=== PATIENT | female | born 2000 | race Hispanic/Latino ===

== ENCOUNTER 2022-01-06 14:05 | Emergency (ER) | payer BC ==
--- NOTE | 2022-01-06 15:01 | Consultation ---
History of Present Illness - Reason for Consult Consult date: 01/06/22 - History of Present Illness [facility] Consult Note # Demographics Consult Type: Acute Stroke Level 1 (0-4.5 hrs) Patient Location: Emergency Room First Name: susannah Last Name: Hua Date of : 2000 Age: 21 Gender: Female Facility: [facility] Time of Initial Page ( Time): 01/06/2022, 14:50 Time of Return Call ( Time): 01/06/2022, 14:50 # HPI History: 21yo woman who presented with headache and chest pain. She then started having left sided weakness as well as stuttering. Onset was at 230OM or so. Associated Symptoms: headache light sensitivity nausea sound sensitivity vision changes vomiting # Scores Time of exam and NIHSS ( Time): 01/06/2022, 14:55 Level of Consciousness 1a: [0] = Alert; keenly responsive LOC Questions 1b: [0] = Answers both questions correctly LOC Commands 1c: [0] = Performs both tasks correctly Best Gaze 2: [0] = Normal Visual 3: [0] = No visual loss Facial Palsy 4: [0] = Normal symmetrical movements Motor Arm Left 5a: [1] = Drift Motor Arm Right 5b: [0] = No drift Motor Leg Left 6a: [1] = Drift Motor Leg Right 6b: [0] = No drift Limb Ataxia 7: [0] = Absent Sensory 8: [0] = Normal Best Language 9: [0] = No aphasia Dysarthria 10: [0] = Normal Extinction and Inattention 11: [0] = No abnormality NIHSS Total: 2 # Exam Vitals: vital signs reviewed Cranial Nerves: no facial droop Motor: variable left arm and leg weakness # PMH-FH-SH Social History: smoker non-drinker # Data Head CT: no bleed # Assessment Impression: Migraine (Complex) less likely stroke. she has variable left arm and leg weakness, and has no facial droop; this would make stroke much less likely # Plan Thrombolytic/Intervention: NOT IV Thrombolysis or IA Intervention candidate Thrombolytic Exclusion (< 3 hour window): non-disabling deficit Intraarterial Exclusion: clinically not consistent with stroke Imaging: (urgency: STAT): CT Angiogram Head and CT Angiogram Neck Medication: migraine cocktail: Toradol 30 mg IV + Benadryl 25 mg IV + antiemetic IV Other: If CTA negative and symptoms resolved may dispo; otherwise would admit for MRI and symptom control I have discussed my recommendations with the referring provider Medications and Allergies Allergies Allergy/AdvReac Type Severity Reaction Status Date / Time Penicillins AdvReac Unknown Verified 01/06/22 14:46 Exam - Constitutional Vitals: Temp Pulse Resp BP Pulse Ox 98 F 85 20 122/84 99 01/06/22 14:07 01/06/22 14:07 01/06/22 14:07 01/06/22 14:07 01/06/22 14:07
--- NOTE | 2022-01-06 15:02 | Emergency Department Report ---
HPI - General Chief Complaint: Psych Time Seen by Provider: 01/06/22 14:41 - HPI HPI: Room 6 Patient is a 21-year-old female present with a chief complaint of headache and left-sided weakness. Patient states at a detox facility for alcohol and marijuana she developed a headache. EMS was called and the patient states approximately 10 minutes after arriving in the ED body began to feel weird on the left side and she then developed weakness of the left arm and left leg. Patient states she had difficulty speaking. ED Past Medical Hx - Past Medical History Previous Medical History?: No - Surgical History Past Surgical History?: No - Family History Family history: no significant - Social History Smoking Status: Current Every Day Smoker (1/2 pack/day) Substance Use Type: Alcohol (None x6-month), Marijuana (None x6 months) - Medications Home Medications: Home Medications Medication Instructions Recorded Confirmed Last Taken Type Butalb/Acetamin/Caff 50-325-40 2 tab PO Q8HR PRN #20 tablet 01/06/22 Unknown Rx [Fioricet 50-325-40] ED Review of Systems ROS: Stated complaint: CHEST PAIN/HEADACHE Other details as noted in HPI Constitutional: no symptoms reported Eyes: denies: eye pain ENT: denies: throat pain Respiratory: no symptoms reported Cardiovascular: chest pain Endocrine: no symptoms reported Gastrointestinal: denies: abdominal pain Genitourinary: denies: dysuria Musculoskeletal: denies: back pain Neurological: headache, weakness Physical Exam - Physical Exam Vital Signs: Vital Signs 01/06/22 14:07 Temperature 98 F Pulse Rate 85 Respiratory 20 Rate Blood Pressure 122/84 [Left] O2 Sat by Pulse 99 Oximetry Physical Exam: GENERAL: The patient is well-developed well-nourished female lying on stretcher not appearing to be in acute distress. [] HEENT: Normocephalic. Atraumatic. Extraocular motions are intact. Patient has moist mucous membranes. NECK: Supple. Trachea midline CHEST/LUNGS: Clear to auscultation. There is no respiratory distress noted. HEART/CARDIOVASCULAR: Regular. There is no tachycardia. There is no gallop rub or murmur. ABDOMEN: Abdomen is soft, nontender. Patient has normal bowel sounds. There is no abdominal distention. SKIN: There is no rash. There is no edema. There is no diaphoresis. NEURO: The patient is awake, alert, and oriented. The patient is cooperative. Cranial nerves II through XII grossly intact. The patient has normal speech. Patient exhibits difficulty raising left upper extremity off of stretcher. She is not able to bring it to 45 degrees but there is effort against gravity. Patient unable to raise left lower extremity off of stretcher MUSCULOSKELETAL: There is no evidence of acute injury. ED Course Vital Signs 01/06/22 14:07 Temperature 98 F Pulse Rate 85 Respiratory 20 Rate Blood Pressure 122/84 [Left] O2 Sat by Pulse 99 Oximetry - Reevaluation(s) Reevaluation #1: 01/06/22 17:34 Patient now asymptomatic after medication. Patient states she feels good. No focal deficits on exam. Will treat for complex migraines - Consultations Consultation #1: 01/06/22 15:00 Case discussed with telemetry neurologist-states if CT is negative recommends treating as migraine Toradol, Benadryl and Reglan. If no improvement admit the patient for further evaluation ED Medical Decision Making - Lab Data Result diagrams: 01/06/22 15:06 01/06/22 15:06 - Radiology Data Radiology results: report reviewed (CT head, CTA brain, CTA neck), image reviewed (CT head, CTA brain, CTA neck) [facility] [address] [place] [address] Cat Scan Report Signed Patient: ZAFAR KIDD MR#: [id number] [id number] : 2000 Acct:[id number] Age/Sex: 21 / F ADM Date: 01/06/22 Loc: ED Attending Dr: Ordering Physician: MARINA GRAHAM MD Date of Service: 01/06/22 Procedure(s): CT head/brain wo con Accession Number(s): [id number] cc: MARINA GRAHAM MD TEMPORARY INDICATION / CLINICAL INFORMATION: Headache left-sided weakness.; . TECHNIQUE: Routine CT head without contrast. All CT scans at this location are performed using CT dose reduction for ALARA by means of automated exposure control. COMPAR BRADY: None. FINDINGS: BRAIN / INTRACRANIAL CONTENTS: The brain demonstrate appropriate attenuation. The ventricular system is within normal limits in size and configuration. There is no clear CT evidence of acute intracranial hemorrhage or significant mass effect. ORBITS: No significant abnormality of visualized orbits. SINUSES / MASTOIDS: No significant abnormality in the visualized paranasal sinuses or mastoid air cells. CRANIOCERVICAL JUNCTION: No significant abnormality. ADDITIONAL FINDINGS: None. IMPRESSION: 1. There is no CT evidence of acute intracranial process. Signer Name: Dhruv Henley MD Signed: 01/06/2022 3:05 PM Workstation Name: [id number] Transcribed By: MR Dictated By: Dhruv Henley MD Electronically Authenticated By: Dhruv Henley MD Signed Date/Time: 01/06/22 1505 DD/ 1503 TD/TT: [facility] [address] [place] [address] Cat Scan Report Signed Patient: ZAFAR KIDD MR#: [id number] : 2000 Acct:[id number] Age/Sex: 21 / F ADM Date: 01/06/22 Loc: ED Attending Dr: Ordering Physician: MARINA GRAHAM MD Date of Service: 01/06/22 Procedure(s): CT angio head Accession Number(s): [id number] cc: MARINA GRAHAM MD CT angio head INDICATION / CLINICAL INFORMATION: 21 years Female; Left-sided weakness 100 ml omni 300 . TECHNIQUE: Thin cut axial images obtained through the head during IV bolus contrast administration. Sagittal, coronal, and 3 plane MIP reconstructions performed by the technologist. NASCET type criteria used evaluate stenoses. Automated exposure control utilized for radiation reduction purposes. COMPARISON: None available. FINDINGS: INTERNAL CAROTID ARTERIES: There is no significant focal stenosis involving intracranial ICAs by NASCET criteria. VERTEBROBASILAR SYSTEM: There appears be mild relative hypoplasia the vertebrobasilar system though there is again no significant focal stenosis. 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 Otherwise, the proximal c erebral arteries and adjacent segments appear to demonstrate appropriate caliber without significant focal stenosis. ANEURYSM: None identified. ADDITIONAL FINDINGS: Remainder of the surrounding soft tissues are grossly normal. IMPRESSION: There is no clear CTA evidence of large vessel occlusion amenable to endovascular treatment. 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 Signer Name: Dhruv Henley MD Signed: 01/06/2022 3:34 PM Workstation Name: [id number] Transcribed By: MR Dictated By: Dhruv Henley MD Electronically Authenticated By: Dhruv Henley MD Signed Date/Time: 01/06/221533 DD/ 29 TD/TT: [facility] [address] [place] [address] Cat Scan Report Signed Patient: ZAFAR KIDD MR#: [id number] [id number] : 2000 Acct:[id number] Age/Sex: 21 / F ADM Date: 01/06/22 Loc: ED Attending Dr: Ordering Physician: MARINA GRAHAM MD Date of Service: 01/06/22 Procedure(s): CT angio neck Accession Number(s): [id number] cc: MARINA GRAHAM MD CT angio neck INDICATION / CLINICAL INFORMATION: 21 years Female; Left-sided weakness omni 350 100. TECHNIQUE: Thin cut axial images obtained through the head during IV bolus contrast administration. Sagittal, coronal, and 3 plane MIP reconstructions performed by the technologist. NASCET type criteria used evaluate stenoses. All CT scans at this location are performed using CT dose reduction for ALARA by means of automated exposure control. COMPARISON: None available. FINDINGS: CAROTID ARTERIES: The motion as well as the beam hardening from the patient's body habitus degrade the image quality. However, there is no significant focal stenosis involving cervical carotid arteries by NASCET criteria. The carotid bifurcations are widely patent VERTEBRAL ARTERIES: There is also no evidence of significant focal stenosis involving cervical vertebral arteries. ARCH: There is developmental common origin of the brachiocephalic and left common carotid arteries. There is no significant stenosis of the origins of the arch vessels. ADDITIONAL FINDINGS: Remainder of the surrounding soft tissues are grossly rigoberto l. IMPRESSION: There is no CTA evidence of significant stenosis involving cervical carotid or vertebral arteries by NASCET criteria. Signer Name: Dhruv Henley MD Signed: 01/06/2022 3:37 PM Workstation Name: [id number] Transcribed By: MR Dictated By: Dhruv Henley MD Electronically Authenticated By: Dhruv Henley MD Signed Date/Time: 01/06/221536 DD/ 33 TD/TT: - Differential Diagnosis Complex migraine, CVA, anxiety, conversion disorder, malingering Critical care attestation.: If time is entered above; I have spent that time in minutes in the direct care of this critically ill patient, excluding procedure time. ED Disposition Clinical Impression: Migraine, hemiplegic Disposition: 01 HOME / SELF CARE / HOMELESS Is pt being admited?: No Does the pt Need Aspirin: No Condition: Stable Instructions: Migraine Headache, [id number] Additional Instructions: Return to the emergency department should you develop worsening symptoms, inability to tolerate food or liquids, high fever or any other concerns Prescriptions: Butalb/Acetamin/Caff 50-325-40 [Fioricet 50-325-40] 2 tab PO Q8HR PRN #20 tablet PRN Reason: Headache Referrals: PRIMARY CAREMD [Primary Care Provider] - 3-5 Days KATY LANDAVERDE MD [Staff Physician] - 3-5 Days (Dr. Landaverde is a neurologist. Please follow-up with him for further evaluation) Time of Disposition: 17:37
--- NOTE | 2022-01-06 15:11 | Cat Scan Report ---
TEMPORARY INDICATION / CLINICAL INFORMATION: Headache left-sided weakness.; . TECHNIQUE: Routine CT head without contrast. All CT scans at this location are performed using CT dos e reduction for ALARA by means of automated exposure control. COMPARISON: None. FINDINGS: BRAIN / INTRACRANIAL CONTENTS: The brain demonstrate appropriate attenuation. The ventricular system is within normal limits in size and configuration. There is no clear CT evidence of acute intracrania l hemorrhage or significant mass effect. ORBITS: No significant abnormality of visualized orbits. SINUSES / MASTOIDS: No significant abnormality in the visualized paranasal sinuses or mastoid air crissy ls. CRANIOCERVICAL JUNCTION: No significant abnormality. ADDITIONAL FINDINGS: None. IMPRESSION: 1. There is no CT evidence of acute intracranial process. Signer Name: Dhruv Henley MD Signed: 01/06/2022 3:05 PM Workstation Name: [id number]
[2022-01-06 15:20] LABS: Basophils # (Auto) 0.1 K/mm3 (0.0-0.1); Basophils % (Auto) 1.1 % (0.0-1.8); Eosinophils # (Auto) 0.2 K/mm3 (0.0-0.4); Hematocrit 36.1 % (30.3-42.9); Hemoglobin 12.4 gm/dl (10.1-14.3); Lymphocytes # (Auto) 2.7 K/mm3 (1.2-5.4); Lymphocytes % (Auto) 33.5 % (13.4-35.0); Mean Corpuscular HGB Conc 34 % (30-34); Mean Corpuscular Volume 85 fl (79-97); Monocytes # (Auto) 0.4 K/mm3 (0.0-0.8); Monocytes % (Auto) 5.4 % (0.0-7.3); Platelet Count 294 K/mm3 (140-440); Red Blood Count 4.25 M/mm3 (3.65-5.03); Red Cell Distribution Width 13.8 % (13.2-15.2)
[2022-01-06 15:31] LABS: INR 0.91 (0.87-1.13)
[2022-01-06 15:32] LABS: Partial Thromboplastin Time 23.3 Sec. (24.2-36.6); Thrombin Time 15.2 Sec. (15.1-19.6)
--- NOTE | 2022-01-06 15:39 | Cat Scan Report ---
CT angio head INDICATION / CLINICAL INFORMATION: 21 years Female; Left-sided weakness 100 ml omni 300 . TECHNIQUE: Thin cut axial images obtained through the head during IV bolus contrast administration. S agittal, coronal, and 3 plane MIP reconstructions performed by the technologist. NASCET type criteria used evaluate stenoses. Automated exposure control utilized for radiation reduction purposes. COMPARISON: None available. FINDINGS: INTERNAL CAROTID ARTERIES: There is no significant focal stenosis involving intracranial ICAs by NASC ET criteria. VERTEBROBASILAR SYSTEM: There appears be mild relative hypoplasia the vertebrobasilar system though t here is again no significant focal stenosis. 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 Otherwise, the proximal cerebral arteries and adjacent segments marcio ear to demonstrate appropriate caliber without significant focal stenosis. ANEURYSM: None identified. ADDITIONAL FINDINGS: Remainder of the surrounding soft tissues are grossly normal. IMPRESSION: There is no clear CTA evidence of large vessel occlusion amenable to endovascular treatment. There is developmental origin of the right PLASTIC JOINT MAKER and hypoplasia of the right A1 segment. Signer Name: Dhruv Henley MD Signed: 01/06/2022 3:34 PM Workstation Name: [id number]
--- NOTE | 2022-01-06 15:42 | Cat Scan Report ---
CT angio neck INDICATION / CLINICAL INFORMATION: 21 years Female; Left-sided weakness omni 350 100. TECHNIQUE: Thin cut axial images obtained through the head during IV bolus contrast administration. S agittal, coronal, and 3 plane MIP reconstructions performed by the technologist. NASCET type criteria used evaluate stenoses. All CT scans at this location are performed using CT dose reduction for ALAR A by means of automated exposure control. COMPARISON: None available. FINDINGS: CAROTID ARTERIES: The motion as well as the beam hardening from the patient's body habitus degrade th e image quality. However, there is no significant focal stenosis involving cervical carotid arteries by NASCET criteria. The carotid bifurcations are widely patent VERTEBRAL ARTERIES: There is also no evidence of significant focal stenosis involving cervical verteb ral arteries. ARCH: There is developmental common origin of the brachiocephalic and left common carotid arteries. T here is no significant stenosis of the origins of the arch vessels. ADDITIONAL FINDINGS: Remainder of the surrounding soft tissues are grossly normal. IMPRESSION: There is no CTA evidence of significant stenosis involving cervical carotid or vertebral arteries by NASCET criteria. Signer Name: Dhruv Henley MD Signed: 01/06/2022 3:37 PM Workstation Name: [id number]
[2022-01-06 15:49] LABS: Alanine Aminotransferase 19 units/L (7-56); Albumin 4.1 g/dL (3.9-5); Blood Urea Nitrogen 10 mg/dL (7-17); Calcium 9.8 mg/dL (8.4-10.2); Hemolysis Index 58
[2022-01-06] MEDS ORDERED: BUTALB/ACETAMINOPHEN/CAFFEINE TAB PO ONE (15:59)
[2022-01-06] MEDS ORDERED: diphenhydrAMINE 50 MG/ML VIAL IV ONE (15:59)
[2022-01-06] MEDS ORDERED: KETOROLAC 30 MG/1 ML INJ IV ONE (15:59)
[2022-01-06] MEDS ORDERED: METOCLOPRAMIDE 10 MG/2 ML INJ IV ONE (15:59)
[2022-01-06 16:14] LABS: BUN/Creatinine Ratio 17
[2022-01-06 17:38] VITALS: BP 126/75
--- NOTE | 2022-01-07 13:25 | Electrocardiograph Report ---
[facility] Test Date: 2022-01-06 Test Time: 14:31:43 Pat Name: ZAFAR KIDD Department: Room: Gender: F Sql Engineer: PAULA : 2000 Requested By: MARINA GRAHAM Order Number: [id number] Reading MD: Luh Singh Measurements Intervals [place] Rate: 74 P: 24 AR: 146 QRS: 34 QRSD: 79 T: 30 QT: 387 QTc: 431 Interpretive Statements Sinus rhythm No previous ECG available for comparison Electronically Signed On 01-07-2022 13:25:33 EST by Luh Singh
== END 2022-01-06 17:57 | disposition home or self-care (01) ==
LOC: ED 14:05
DX: G43.909 Migraine, unspecified, not intractable, without status migrainosus (principal); G81.94 Hemiplegia, unspecified affecting left nondominant side; F17.200 Nicotine dependence, unspecified, uncomplicated
CPT/HCPCS: 36415; 70450; 70496; 70498; 80053; 84484; 85025; 85610; 85670; 85730; 93005; 93010; 96374; 96375; 99285; J1200; J1885; J2765; Q9967; 80320; 99284; G0480